=== PATIENT | female | born 1985 | race African-American/Black ===

== ENCOUNTER 2017-01-01 23:35 | Emergency (ER) | payer SELFPAY ==
[~2017-01-01] VITALS: Ht 160 cm; Wt 54.0 kg
[2017-01-02 01:18] LABS: CHLORIDE 103 mEq/L (98-107); INDEX HEMOLYSI 1 (1-3); INDEX ICTERIC 1 (1-4); INDEX LIPEMIC 1 (1-3)
[2017-01-02 01:19] LABS: BASOPHILS % 0.6 % (0.0-2.0); EOSINOPHILS % 2.2 % (0.0-5.0); HCG SCREEN NEGATIVE; HEMATOCRIT. 34.8 % (36.0-48.0); HEMOGLOBIN. 11.7 g/dL (12.0-16.0); LYMPHOCYTES % 40.8 % (20.0-50.0); MEAN CORPUSCULAR HEMOGLOBIN 29.2 pg (28.0-32.0); MEAN CORPUSCULAR HGB CONC 33.7 g/dL (31.0-37.0); MEAN CORPUSCULAR VOLUME 86.8 fL (81.0-99.0); MEAN PLATELET VOLUME 7.2 fl (7.4-10.4); MONOCYTES % 9.4 % (2.0-8.0); PLATELET 344 x1000/uL (130-400); RED BLOOD CELL COUNT 4.01 mill/uL (4.2-5.4); RED CELL DISTRIBUTION WIDTH 12.5 % (11.6-14.6); WHITE BLOOD COUNT 10.9 x1000/uL (4.5-11.0)
[2017-01-02 01:27] LABS: ALANINE AMINOTRANSFERASE 20 IU/L (13-61); ALBUMIN 3.8 g/dL (3.4-5.0); ANION GAP 15; CALCIUM 8.6 mg/dL (8.5-10.1); CARBON DIOXIDE 27 mEq/L (21-32); UREA NITROGEN BLOOD 12 mg/dL (7-21); eGFR > 60 mL/min (>60)
[2017-01-02 02:21] VITALS: BP 105/72
== END 2017-01-02 07:28 | disposition home or self-care (01) ==
LOC: ER 01-02 07:28
DX: R07.89 Other chest pain (principal); R06.02 Shortness of breath
CPT/HCPCS: 36415; 71010; 80053; 84703; 85025; 93005; 99285; Z7610

== ENCOUNTER 2017-05-19 00:55 | Emergency (ER) | payer SELFPAY ==
[~2017-05-19] VITALS: Ht 160 cm; Wt 58.0 kg
[2017-05-19] MEDS ORDERED: IBUPROFEN 400MG TABLET PO ONE (02:00)
[2017-05-19 04:32] VITALS: BP 111/76
== END 2017-05-19 04:34 | disposition home or self-care (01) ==
LOC: ER 03:25
DX: M94.0 Chondrocostal junction syndrome [Tietze] (principal)
CPT/HCPCS: 71010; 93005; 99284; Z7610